=== PATIENT | male | born 1985 | race Caucasian/White ===

== ENCOUNTER 2018-06-03 04:56 | Emergency (ER) | payer SELFPAY ==
[~2018-06-03] VITALS: Ht 167.6 cm; Wt 91.0 kg
[2018-06-03] MEDS ORDERED: BACITRACIN ZINC OINT UDPKT TOP ONE (08:00)
[2018-06-03] MEDS ORDERED: TETANUS, DIPHTHERIA, PERTUSSIS VAC/PF 0.5ML (>7YR OLD) IM ONE (08:00)
[2018-06-03 08:46] VITALS: BP 116/80
== END 2018-06-03 08:47 | disposition home or self-care (01) ==
LOC: ER 04:56
DX: S80.922D Unspecified superficial injury of left lower leg, subsequent encounter (principal); L03.115 Cellulitis of right lower limb; F15.10 Other stimulant abuse, uncomplicated; F17.200 Nicotine dependence, unspecified, uncomplicated; X58.XXXD Exposure to other specified factors, subsequent encounter
CPT/HCPCS: 90471; 90715; 99283; Z7610